=== PATIENT | male | born 1975 | race Caucasian/White ===

== ENCOUNTER 2023-05-24 06:43 | Emergency (ER) | payer BC ==
[~2023-05-24] VITALS: Ht 175.3 cm; Wt 71.7 kg
[2023-05-24 07:05] VITALS: TEMP 98.5
[2023-05-24 08:31] VITALS: BP 150/86; PULSE 63; RESP 16; O2SAT 97
[2023-05-24] MEDS: triamcinolone acetonide 40mg/ml inj IM ONE (08:57)
[2023-05-24] MEDS: orphenadrine citrate 60mg/2ml inj. IM ONE (08:58)
[2023-05-24] MEDS ORDERED: NAPR-56 PO (09:12)
== END 2023-05-24 09:46 | disposition home or self-care (01) ==
LOC: ER 06:44
DX: M54.32 Sciatica, left side (principal); Z79.899 Other long term (current) drug therapy
CPT/HCPCS: 72170; 96372; 99284; J2360; J3301